=== PATIENT | female | born 1995 | race Caucasian/White ===

== ENCOUNTER 2018-10-11 22:17 | Emergency (ER) | payer OTHER ==
[~2018-10-11] VITALS: Ht 165.1 cm; Wt 64.9 kg
[2018-10-11 23:14] LABS: Urine Bacteria NONE SEEN /hpf (None Seen); Urine Blood Negative /uL (Negative); Urine Hyaline Cast FEW /lpf (0 - 2); Urine Specific Gravity 1.005 (1.001-1.035); Urine WBC 8 /hpf (0 - 5)
[2018-10-12] MEDS ORDERED: cefTRIAXone SOD 1,000 MG VL IM ONE (01:00)
[2018-10-12] MEDS ORDERED: PHENAZOPYRIDINE HCL 100 MG TAB PO ONE (01:00)
[2018-10-12] MEDS ORDERED: ACETAMINOPHEN/CODEINE#3 (300/30mg) TAB PO ONE (01:00)
[2018-10-12 01:16] VITALS: BP 129/84
== END 2018-10-12 01:40 | disposition home or self-care (01) ==
LOC: ER 22:17
DX: N39.0 Urinary tract infection, site not specified (principal)
CPT/HCPCS: 81001; 81025; 96372; 99283; J0696